=== PATIENT | female | born 1955 | race Caucasian/White ===

== ENCOUNTER 2023-03-28 14:00 | Emergency (ER) | payer OTHER ==
[2023-03-28 15:10] LABS: Specific Gravity 1.018 (1.005-1.030); Urine Bacteria 20-50 /HPF (<20); Urine Bilirubin NEGATIVE (Negative); Urine Blood 2+ (Negative); Urine Clarity Extremely Turbid (Clear); Urine Color Orange (Yellow); Urine Glucose NEGATIVE (Negative); Urine Protein 1+ (Negative); Urine Urobilinogen 2+ (Normal); Urine pH 5.5 (5.0-7.0)
--- NOTE | 2023-03-28 15:45 | RAD REPORT ---
EXAM DESCRIPTION: Jose Carlos Single View03/28/2023 2:53 pm CLINICAL HISTORY: Chest pain COMPARISON: 2010 FINDINGS: Elevation right hemidiaphragm The lungs appear clear of acute infiltrate. The heart is normal size
[2023-03-28 15:47] LABS: Absolute Lymphocytes (CBC) 1.6 K/uL (0.7-4.9); Lymphocytes % 14.7 % (15.3-44.8); MCV 96.3 fL (80-100); MPV 9.1 fL (7.6-11.3); Platelets 385 thou/uL (152-406); RBC Red Blood Cell Count 4.05 M/uL (3.86-4.86)
[2023-03-28 15:48] LABS: Protime INR 1.17
[2023-03-28 15:51] LABS: Albumin 2.8 g/dL (3.4-5.0); Bilirubin Total 0.4 mg/dL (0.2-1.0); Potassium 3.5 mEq/L (3.5-5.1); Protein, Total 8.3 g/dL (6.4-8.2)
--- NOTE | 2023-03-28 16:12 | EDPHYS ---
Physician Documentation [facility] Name: Marion Yeboah Age: 67 yrs Sex: Female : 1955 Arrival Date: 03/28/2023 Time: 14:00 Bed 18 Private MD: ED Physician Vandana Rizo HPI: 03/28 15:04 This 67 yrs old Female presents to ER via Unassigned with complaints of UTI and altered sp3 mental status. 15:04 67-year-old female presents from long term via EMS for altered mental status and UTI sp3 which was found via urine analysis which was returned today. No antibiotics have been started as of yet. Limited history, physical and ROS secondary to dementia. Family is here with patient which endorse increased confusion. No other abnormalities reported by facility or EMS or family.. Historical: - Home Meds: 14:00 Depakote Oral [Active]; Docusate Sodium Oral [Active]; Ferrous Sulfate Oral [Active]; eh3 Ibuprofen Oral [Active]; levothyroxine oral [Active]; Tylenol #3 Oral [Active]; - PMHx: 14:00 Anxiety; cognitive communication deficit; constipation; Contracture of Muscle; eh3 Dementia; DYSPHAGIA; Glaucoma; hemiplegia; Hyperlipidemia; Hypertensive disorder; Hypothyroidism; macular degeneration; MUSCLE WEAKNESS; unspecified lack of coordination; - Immunization history:: Adult Immunizations up to date. - Social history:: Smoking status: unknown. ROS: 15:05 Unable to obtain ROS due to altered mental status, baseline dementia, sp3 Exam: 15:05 Constitutional: This is a well developed, well nourished patient who is awake, alert, sp3 and in no acute distress. Head/Face: Normocephalic, atraumatic. Eyes: Pupils equal round and reactive to light, extra-ocular motions intact. Lids and lashes normal. Conjunctiva and sclera are non-icteric and not injected. Cornea within normal limits. Periorbital areas with no swelling, redness, or edema. Neck: Trachea midline, no thyromegaly or masses palpated, and no cervical lymphadenopathy. Supple, full range of motion without nuchal rigidity, or vertebral point tenderness. No Meningismus. Chest/axilla: Normal chest wall appearance and motion. Nontender with no deformity. No lesions are appreciated. Cardiovascular: Regular rate and rhythm with a normal S1 and S2. No gallops, murmurs, or rubs. Normal PMI, no JVD. No pulse deficits. Respiratory: Lungs have equal breath sounds bilaterally, clear to auscultation and percussion. No rales, rhonchi or wheezes noted. No increased work of breathing, no retractions or nasal flaring. Abdomen/GI: Soft, non-tender, with normal bowel sounds. No distension or tympany. No guarding or rebound. No evidence of tenderness throughout. Skin: Warm, dry with normal turgor. Normal color with no rashes, no lesions, and no evidence of cellulitis. 15:05 Abdomen/GI: Abdomen is soft with no grimace noted. No peritoneal signs present. Nonsurgical abdomen., 15:44 ECG was reviewed by the Attending Physician. EKG demonstrates sinus tachycardia at 109 sp3 bpm with normal intervals, mild leftward axis, normal QRS, nonspecific diffuse ST/T changes without evidence of acute ischemia. Vital Signs: 14:00 BP 113 / 71; Pulse 114; Resp 20; Temp 98.3(O); Pulse Ox 96% on R/A; eh3 15:00 BP 137 / 79; Pulse 113; Resp 20; Pulse Ox 98% on 2 lpm NC; eh3 16:30 Pulse 104; Resp 20; Pulse Ox 100% on NC; ll1 17:00 BP 143 / 68; Pulse 105; Resp 20; Pulse Ox 98% on 2 lpm NC; eh3 MDM: 14:16 Patient medically screened. sp3 15:08 Data reviewed: vital signs, nurses notes, lab test result(s), EKG, radiologic studies. sp3 ED course: 67-year-old female from long term with positive UTI and mental status changes. We will perform sepsis work-up and likely admit patient versus transfer secondary to facility being at over capacity. Disposition pending work-up and patient course. Patient is not clinically septic.. 16:10 ED course: Laboratory values reviewed. Mild MARVIN is noted. We will start IV fluids and sp3 cefepime IV. Patient has been graciously excepted by physician team at [facility] secondary to capacity here at [facility].. 03/28 14:16 Order name: Blood Culture Adult (2) sp3 03/28 14:16 Order name: CBC with Diff; Complete Time: 16:05 sp3 03/28 14:16 Order name: CMP; Complete Time: 16:05 sp3 03/28 14:16 Order name: Lactate w/ 2H reflex if indic.; Complete Time: 16:05 sp3 03/28 14:16 Order name: Protime (+inr); Complete Time: 16:05 3 03/28 14:16 Order name: Urinalysis w/ reflexes; Complete Time: 15:23 sp3 03/28 14:24 Order name: Troponin High Sensitivity 3 03/28 15:16 Order name: Urine Culture EDMS 03/28 15:44 Order name: SARS RAPID 3 03/28 14:16 Order name: CXR XRAY; Complete Time: 15:46 sp3 03/28 14:16 Order name: EKG; Complete Time: 14:17 sp3 03/28 14:16 Order name: Cardiac monitoring; Complete Time: 14:51 sp3 03/28 14:16 Order name: Cath: Pimentel; Complete Time: 14:50 sp3 03/28 14:16 Order name: EKG - Nurse/Tech; Complete Time: 14:51 sp3 03/28 14:16 Order name: IV Saline Lock - Large Bore; Complete Time: 15:29 sp3 03/28 14:16 Order name: Labs collected and sent; Complete Time: 15:29 sp3 03/28 14:16 Order name: O2 Sat Monitoring; Complete Time: 14:51 sp3 03/28 14:16 Order name: Vital Signs; Complete Time: 14:51 sp3 Administered Medications: 16:30 Drug: Cefepime IVPB 1 grams IVPB at 200 ml/hr once over 30 mins; (mix in NS 100 mL) ll1 Route: IVPB; Rate: 200 ml/hr; Infused Over: 30 mins; Site: left antecubital; 17:30 Follow up: Response: No adverse reaction; IV Status: Completed infusion; IV Intake: eh3 100ml 16:48 Drug: NS 0.9% IV 1000 ml IV at 1 bolus Per protocol; 1000 mL bolus Route: IV; Rate: 1 ll1 bolus; Site: left antecubital; 17:30 Follow up: Response: No adverse reaction; IV Status: Completed infusion; IV Intake: eh3 1000ml Disposition Summary: 03/28/23 16:11 Transfer Ordered Notes: Transfer Location: [facility] sp3 Reason: Higher level of care sp3 Condition: Stable sp3 Problem: an acute exacerbation sp3 Symptoms: have worsened sp3 Accepting Physician: Dr. Rodriguez(03/28/23 18:29) 3 Diagnosis - UTI, MARVIN, dehydration sp3 Forms: - Medication Reconciliation Form sp3 - SBAR form sp3 Signatures: Dispatcher [employer] EDMS Stefan Perez RN RN 1 Vandana Rizo MD MD sp3 Silvia Cárdenas RN RN eh3 Corrections: (The following items were deleted from the chart) 18:29 16:11 Dr. Rodriguez sp3 3
--- NOTE | 2023-03-28 16:12 | ER ---
Nurse's Notes [facility] Name: Marion Yeboah Age: 67 yrs Sex: Female : 1955 Arrival Date: 03/28/2023 Time: 14:00 Bed 18 Private MD: Diagnosis: UTI, MARVIN, dehydration Presentation: 03/28 14:00 Chief complaint: EMS states: toned out to [facility] for AMS and abnormal UA this 3 morning. Coronavirus screen: Vaccine status: Patient reports receiving the 2nd dose of the covid vaccine. Ebola Screen: No symptoms or risks identified at this time. Risk Assessment: Do you want to hurt yourself or someone else? Patient reports no desire to harm self or others. Onset of symptoms was March 28, 2023. 14:00 Method Of Arrival: EMS: [facility] 3 14:00 Acuity: LAM 3 3 14:00 Initial Sepsis Screen: Does the patient meet any 2 criteria? Altered Mental Status. HR eh3 > 90 bpm. Yes Does the patient have a suspected source of infection? Yes: Dysuria/Frequency/Urgency/UTI. Triage Assessment: 14:00 General: Appears in no apparent distress. uncomfortable, Behavior is cooperative, eh3 anxious. Pain: Unable to use pain scale. Patient is disoriented. Neuro: Level of Consciousness is awake, alert, Oriented to person. Cardiovascular: Capillary refill < 3 seconds Patient's skin is warm and dry. Respiratory: Airway is patent Respiratory effort is even, unlabored, Respiratory pattern is regular, symmetrical. GI: Abdomen is round non-distended. Derm: Skin is pink, warm \T\ dry. Musculoskeletal: Circulation, motion, and sensation intact. Historical: - Home Meds: 14:00 Depakote Oral [Active]; Docusate Sodium Oral [Active]; Ferrous Sulfate Oral [Active]; eh3 Ibuprofen Oral [Active]; levothyroxine oral [Active]; Tylenol #3 Oral [Active]; - PMHx: 14:00 Anxiety; cognitive communication deficit; constipation; Contracture of Muscle; eh3 Dementia; DYSPHAGIA; Glaucoma; hemiplegia; Hyperlipidemia; Hypertensive disorder; Hypothyroidism; macular degeneration; MUSCLE WEAKNESS; unspecified lack of coordination; - Immunization history:: Adult Immunizations up to date. - Social history:: Smoking status: unknown. Screenin:00 [facility] ED Fall Risk Assessment (Adult) Score/Fall Risk Level 0 - 2 = Low Risk. Abuse eh3 screen: Denies threats or abuse. Denies injuries from another. Nutritional screening: No deficits noted. Tuberculosis screening: No symptoms or risk factors identified. Assessment: 14:00 Reassessment: No changes from previously documented assessment. See triage assessment. eh3 14:30 Reassessment: SpO2 is 91-92% on RA, placed on 2L O2 via NC, SpO2 increased to 98%. eh3 15:00 Reassessment: Patient appears in no apparent distress at this time. Patient and/or eh3 family updated on plan of care and expected duration. Pain level reassessed. 16:00 Reassessment: Patient appears in no apparent distress at this time. Patient and/or eh3 family updated on plan of care and expected duration. Pain level reassessed. 16:31 Reassessment: No changes from previously documented assessment. Patient and/or family ll1 updated on plan of care and expected duration. Pain level reassessed. 17:00 Reassessment: Patient appears in no apparent distress at this time. Patient and/or eh3 family updated on plan of care and expected duration. Pain level reassessed. 17:17 Reassessment: Sonia (daughter): [phone], Nga (daughter) [phone]. eh3 18:00 Reassessment: Patient appears in no apparent distress at this time. Patient and/or eh3 family updated on plan of care and expected duration. Pain level reassessed. Vital Signs: 14:00 BP 113 / 71; Pulse 114; Resp 20; Temp 98.3(O); Pulse Ox 96% on R/A; eh3 15:00 BP 137 / 79; Pulse 113; Resp 20; Pulse Ox 98% on 2 lpm NC; eh3 16:30 Pulse 104; Resp 20; Pulse Ox 100% on NC; ll1 17:00 BP 143 / 68; Pulse 105; Resp 20; Pulse Ox 98% on 2 lpm NC; eh3 ED Course: 14:00 Arm band placed on. eh3 14:00 Patient has correct armband on for positive identification. Placed in gown. Bed in low eh3 position. Call light in reach. Side rails up X2. Provided Education on: use of call corbin. Client placed on continuous cardiac and pulse oximetry monitoring. NIBP monitoring applied. 14:08 Patient arrived in ED. sp3 14:08 Vandana Rizo MD is Attending Physician. sp3 14:20 Pimentel cath inserted, using sterile technique, 16 Fr., by sc, balloon inflated, to eh3 gravity drainage, urine specimen collected. returned cloudy urine. Patient tolerated well. 14:50 Silvia Cárdenas, RN is Primary Nurse. eh3 14:55 CXR XRAY In Process Unspecified. EDMS 15:30 Triage completed. eh3 15:30 Protime (+inr) Sent. bc6 15:30 Lactate w/ 2H reflex if indic. Sent. bc6 16:31 Troponin High Sensitivity Sent. ll1 18:28 No provider procedures requiring assistance completed. Patient transferred, IV remains eh3 in place. Administered Medications: 16:30 Drug: Cefepime IVPB 1 grams IVPB at 200 ml/hr once over 30 mins; (mix in NS 100 mL) ll1 Route: IVPB; Rate: 200 ml/hr; Infused Over: 30 mins; Site: left antecubital; 17:30 Follow up: Response: No adverse reaction; IV Status: Completed infusion; IV Intake: eh3 100ml 16:48 Drug: NS 0.9% IV 1000 ml IV at 1 bolus Per protocol; 1000 mL bolus Route: IV; Rate: 1 ll1 bolus; Site: left antecubital; 17:30 Follow up: Response: No adverse reaction; IV Status: Completed infusion; IV Intake: eh3 1000ml Medication: 18:28 VIS not applicable for this client. eh3 Intake: 17:30 IV: 100ml; Total: 100ml. eh3 17:30 IV: 1000ml; Total: 1100ml. eh3 Outcome: 16:11 ER care complete, transfer ordered by . sp3 18:28 Transferred by ground EMS to [facility], Transfer form completed. eh3 18:28 Condition: stable 18:28 Instructed on the need for transfer, 18:29 Patient left the ED. 3 Signatures: Dispatcher [employer] Stefan Montes De Oca RN RN 1 Vandana Rizo MD MD sp3 Silvia Cárdenas RN RN 3 Sherie Garcia 6 Corrections: (The following items were deleted from the chart) 17:17 14:30 Reassessment: SpO2 is 91-91% on RA, placed on 2L O2 via NC, SpO2 increased to 98% eh3 eh3
[2023-03-28] MEDS ORDERED: NA CHLORIDE 0.9% 100 ML ONE (16:29)
[2023-03-28] MEDS ORDERED: NA CHLORIDE 0.9% 1,000 ML ONE (16:29)
[2023-03-28] MEDS ORDERED: CEFEPIME 1 GM/VIAL ONE (16:29)
[2023-03-28 17:27] LABS: SARS-CoV-2 Antigen Rapid Res Negative (Negative)
[2023-03-28 19:53] VITALS: TEMP 98.3
[2023-03-28 19:58] VITALS: BP 143/68; O2SAT 98
--- NOTE | 2023-03-31 16:55 | EKG ---
Test Date: 2023-03-28 Test Time: 14:29:43 [employer] Administrator: ECHO MEASUREMENT RESULTS: Intervals: Rate: 109 AK: 160 QRSD: 80 QT: 344 QTc: 463 [place]: P: 39 AK: 160 QRS: 7 T: 128 INTERPRETIVE STATEMENTS: Sinus tachycardia ST & T wave abnormality, consider lateral ischemia Abnormal ECG Compared to ECG 02/10/2011 19:31:46 ST (T wave) deviation now present Possible ischemia now present Sinus rhythm no longer present Electronically Signed On 03-31-23 16:52:23 [employer] by Cole Cash
== END 2023-03-28 18:29 | disposition short-term general hospital (02) ==
LOC: ER 14:00
DX: N39.0 Urinary tract infection, site not specified (principal); E86.0 Dehydration; N17.9 Acute kidney failure, unspecified; I10 Essential (primary) hypertension; F03.90 Unspecified dementia, unspecified severity, without behavioral disturbance, psychotic disturbance, mood disturbance, and anxiety; Z11.52 Encounter for screening for COVID-19
CPT/HCPCS: 96365; 93005; 87040 ×2; 87088; 85025; 81001; 87086; 36415; 85610; 83605; 84484; 80053; 71045; 51702; 99285; 87811; J7030; J0692